=== PATIENT | female | born 1950 | race Caucasian/White ===

== ENCOUNTER 2020-08-29 14:00 | Outpatient (REF) | payer MEDICARE, SELFPAY ==
[2020-08-29 18:15] LABS: Alanine Aminotransferase 13 U/L (0-31); Albumin Level 4.1 g/dL (3.5-5.0); Alkaline Phosphatase 119 U/L (39-117); Anion Gap 18 (12-20); Aspartate Amino Transferase 15 U/L (5-31); Bilirubin Total 0.5 mg/dL (0.0-1.0); Blood Urea Nitrogen 23 mg/dL (9-16); Calcium 9.6 mg/dL (8.4-10.2); Carbon Dioxide 22 mmol/L (22-29); Chloride 104 mmol/L (96-108); Estimated Glomerular Filt Rate 42; Glucose Random 103 mg/dL (60-115); Potassium 4.8 mmol/L (3.3-5.1); Sodium 139 mmol/L (135-145)
== END 2020-08-29 14:01 | disposition home or self-care (01) ==
LOC: HO.HMGCLDS 14:00
PROVIDERS: PCP Internal Medicine; Visit Provider Internal Medicine
DX: E66.01 Morbid (severe) obesity due to excess calories (principal); F33.9 Major depressive disorder, recurrent, unspecified; I89.0 Lymphedema, not elsewhere classified
CPT/HCPCS: 36415; 80053

== ENCOUNTER → 2020-11-06 10:56 | Outpatient (BNVA) | payer MEDICARE, SELFPAY | PROVIDERS: Visit Provider Internal Medicine | DX: I89.0 Lymphedema, not elsewhere classified (principal); S71.101A Unspecified open wound, right thigh, initial encounter | CPT/HCPCS: 99202 ==

== ENCOUNTER 2021-07-12 12:45 | Outpatient (REF) | payer MEDICARE, SELFPAY ==
[2021-07-12 14:05] LABS: Alanine Aminotransferase 13 U/L (0-31); Albumin Level 3.6 g/dL (3.5-5.0); Alkaline Phosphatase 138 U/L (39-117); Anion Gap 13 (12-20); Aspartate Amino Transferase 15 U/L (5-31); Bilirubin Total 0.5 mg/dL (0.0-1.0); Blood Urea Nitrogen 22 mg/dL (9-16); Calcium 9.3 mg/dL (8.4-10.2); Carbon Dioxide 24 mmol/L (22-29); Chloride 105 mmol/L (96-108); Estimated Glomerular Filt Rate 53; Glucose Random 94 mg/dL (60-115); Potassium 4.2 mmol/L (3.3-5.1); Sodium 138 mmol/L (135-145); Total Protein 6.5 g/dL (6.5-8.0)
== END 2021-07-12 12:46 | disposition home or self-care (01) ==
LOC: HO.HMGCLDS 12:45
PROVIDERS: PCP Internal Medicine; Visit Provider Internal Medicine
DX: F33.9 Major depressive disorder, recurrent, unspecified (principal); I89.0 Lymphedema, not elsewhere classified; R26.9 Unspecified abnormalities of gait and mobility; E66.01 Morbid (severe) obesity due to excess calories
CPT/HCPCS: 36415; 80053

== ENCOUNTER 2022-12-03 12:45 | Outpatient (AMB) | payer MEDICARE, MEDICAID, SELFPAY ==
--- NOTE | 2022-12-03 12:55 | MHC.PC.OV ---
Vital Signs 12/03/22 12:58 Height 5 ft 1 in Weight 254 lb BMI 48.0 BP 132/70 Blood Pressure Location Rt radial Position Sitting Pulse 100 Pulse Source Pulse Oximeter Pulse Oximetry (%) 97 Oxygen Delivery Method Room Air Intake Visit Reasons: 6 Month follow up Med Intake Note: Pt is here today for 6 months follow up visit. Allergies cefuroxime Adverse Reaction (Mild, Verified 12/03/22 12:59) Rash Cloth tape Allergy (Unknown, Uncoded 12/03/22 12:59) ?rash Medication List - Last Reconciled 12/03/22 by Michelle Alvarez MD bupropion HCl 300 mg PO QAM 90 days furosemide (Lasix) 40 mg PO DAILY 90 days ibuprofen 500 mg PO Q6H Tobacco use date assessed: 12/03/22 Fall risk assessment: No Falls in past year Last assessed Fall Risk: 12/03/22 Dental Screening Dental Screen Date: 12/03/22 Did you have a dental visit in the last 12 months?: No Did you have a dental problem in the last 6 months where you did not have access to dental care?: No Was dental information given to patient?: Patient declined HPI 6 Month follow up Med HPI Details Patient is 72-year-old female with a history of lymphedema and morbid obesity came in for her 6 month follow-up appointment Patient is due for labs which has not been done yet it was ordered last visit as well. Patient is on Lasix 40 mg daily Major depression: Patient is on Wellbutrin 300 mg daily, depression is stable, no side effects. Difficulty walking because of morbid obesity her BMI was 43.5. Last visit and today it is 48.0. Was offered patient, appointment with dietitian for bariatric surgery which she declined Patient says that she knows why she gained weight because she is not very active anymore, she is having difficulty walking I have ordered physical therapy at home she already have [facility]NA come over for dressing for her leg wounds Patient have severe lymphedema and she goes to [facility] clinic regularly. She is mobile with the help of walker with difficulty Last time she had labs her alkaline phosphatase was 138 which need to be repeated [facility] Social History Housing: Apartment Patient Tobacco Use Status: Never used Tobacco e-Cigarette/Vaping Use: Never Used Current occupational status: disabled Cognitive needs: No Hearing needs: No Vision needs: Yes Questionnaire PHQ-9 Over the last 2 weeks, how often have you been bothered by any of the following problems? 1. Little interest or pleasure in doing things: several days 2. Feeling down, depressed, or hopeless: several days 3. Trouble falling or staying asleep, or sleeping too much: several days 4. Feeling tired or having little energy: several days 5. Poor appetite or overeating: not at all 6. Feeling bad about yourself - or that you are a failure or have let yourself or your family down: not at all 7. Trouble concentrating on things, such as reading the newspaper or watching television: not at all 8. Moving or speaking so slowly that other people could have noticed. Or the opposite - being so fidgety or restless that you have been moving around a lot more than usual: several days 9. Thoughts that you would be better off or of hurting yourself in some way: not at all Total score: 5 Depression Screening Interpretation: Negative Depression Screening Done: Yes 34188 - PHQ-9 Billing: Yes Source: Developed by Drs. Evens Martin, Kristal Oreilly, Stew Allen and colleagues, with an educational kenneth from [employer]. Thrive Questionnaire Date Thrive assessed: 08/29/20 AUDIT C Alcohol Use Questionnaire (AUDIT-C) 1. How often do you have a drink containing alcohol?: Never 3. How often do you have six or more drinks on one occasion?: Never Total Score: 0 Review of Systems Const Denies chills and Denies fever(s) ENT Denies epistaxis and Denies nasal discharge Card Denies chest pain Resp Denies chest congestion, Denies cough and Denies hemoptysis GI Denies diarrhea and Denies nausea Skin/Breast Denies rash Neuro Reports no additional complaints Psych Reports no additional complaints Endo Reports no additional complaints Physical exam (Primary Care) Vital Signs: Last Vital Signs Pulse 100 12/03/22 12:58 BP 132/70 12/03/22 12:58 Pulse Ox 97 12/03/22 12:58 Oxygen Delivery Method Room Air 12/03/22 12:58 Care Plan Goal for BP management: BMI result Body Mass Index 48.0 Senior Application Software Engineer consultation and bariatric appointment offered to patient which was declined BMI Assessment/Plan discussion: High Tobacco/Smoking Status: Tobacco use Status Tobacco use date assessed 12/03/22 12/03/22 13:01 Patient Tobacco Use Status Never used Tobacco 12/03/22 13:01 e-Cigarette/Vaping Use Never Used 12/03/22 12:55 PHQ-9: PHQ-9 Score PHQ-9: Total score 5 12/03/22 13:13 Depression Screening Interpretation: Negative Thrive Assessment: Date of Thrive Assessment Date Thrive assessed 08/29/20 12/03/22 12:55 Const Other: morbid obesity General: cooperative, comfortable and no acute distress Orientation/consciousness: patient oriented x3 HENMT Head: Yes normocephalic Eyes General: appearance normal, both eyes and all related structures Neck Neck: Yes supple Resp Effort & Inspection: normal respiratory effort, no cough and no stridor Cardio Rhythm: regular rhythm Heart sounds: S1 normal heart sound present and S2 normal heart sound present Skin General skin exam: turgor normal Neuro General: patient oriented x3 Cognition (Neuro): normal cognition Gait exam (Neuro): Normal gait present Extrem Other: severe lymph edema both lower extremities Psych Thought content: Normal thought content present Assessment and Plan Assessment & Plan (1) Major depression, recurrent: Code(s): F33.9 - Major depressive disorder, recurrent, unspecified Qualifiers: Active/Remission status: currently active Major depression episode severity: moderate Qualified Code(s): F33.1 - Major depressive disorder, recurrent, moderate (2) Morbid obesity due to excess calories: Code(s): E66.01 - Morbid (severe) obesity due to excess calories (3) Lymphedema: Code(s): I89.0 - Lymphedema, not elsewhere classified (4) Gait difficulty: Code(s): R26.9 - Unspecified abnormalities of gait and mobility (5) Wound of lower extremity: Comment: There doesnt seem to be active infection at this time Wound Vac is working Code(s): S81.809A - Unspecified open wound, unspecified lower leg, initial encounter Qualifiers: Encounter type: sequela Laterality: left Qualified Code(s): S81.802S - Unspecified open wound, left lower leg, sequela (6) Osteoarthritis of knees, bilateral: Code(s): M17.0 - Bilateral primary osteoarthritis of knee Qualifiers: Osteoarthritis type: primary Qualified Code(s): M17.0 - Bilateral primary osteoarthritis of knee Plan Patient is 72-year-old female with a history of lymphedema and morbid obesity came in for her 6 month follow-up appointment Patient is due for labs which has not been done yet it was ordered last visit as well. Patient is on Lasix 40 mg daily Major depression: Patient is on Wellbutrin 300 mg daily, depression is stable, no side effects. Difficulty walking because of morbid obesity her BMI was 43.5. Last visit and today it is 48.0. Was offered patient, appointment with dietitian for bariatric surgery which she declined Patient says that she knows why she gained weight because she is not very active anymore, she is having difficulty walking I have ordered physical therapy at home she already have VNA come over for dressing for her leg wounds Patient have severe lymphedema and she goes to [facility] clinic regularly. She is mobile with the help of walker with difficulty Last time she had labs her alkaline phosphatase was 138 which need to be repeated Orders: Orders TSH reflex Free T4 Today E66.01 - Morbid (severe) obesity due to excess calories, F33.9 - Major depressive disorder, recurrent, unspecified, I89.0 - Lymphedema, not elsewhere classified, R26.9 - Unspecified abnormalities of gait and mobility Complete Blood Count Auto Diff Today E66.01 - Morbid (severe) obesity due to excess calories, F33.9 - Major depressive disorder, recurrent, unspecified, I89.0 - Lymphedema, not elsewhere classified, R26.9 - Unspecified abnormalities of gait and mobility Comprehensive Met. Panel Today E66.01 - Morbid (severe) obesity due to excess calories, F33.9 - Major depressive disorder, recurrent, unspecified, I89.0 - Lymphedema, not elsewhere classified, R26.9 - Unspecified abnormalities of gait and mobility [facility]errals [facility] Referral I89.0 - Lymphedema, not elsewhere classified, M17.0 - Bilateral primary osteoarthritis of knee, R26.9 - Unspecified abnormalities of gait and mobility, S81.809A - Unspecified open wound, unspecified lower leg, initial encounter Coding Level of Care Code Est Pt Level 4 (23209) Diagnoses Moderate episode of recurrent major depressive disorder F33.1 Active/Remission status: currently active Major depression episode severity: moderate Morbid obesity due to excess calories E66.01 Lymphedema I89.0 Gait difficulty R26.9 Wound of left lower extremity, sequela S81.802S Encounter type: sequela Laterality: left Primary osteoarthritis of both knees M17.0 Osteoarthritis type: primary
[2022-12-03 12:58] VITALS: BP 132/70; PULSE 100; O2SAT 97; BMI 48.0
== END 2022-12-03 13:32 | disposition home or self-care (01) ==
PROVIDERS: PCP Internal Medicine; Visit Provider Internal Medicine
DX: F33.1 Major depressive disorder, recurrent, moderate (principal); E66.01 Morbid (severe) obesity due to excess calories; I89.0 Lymphedema, not elsewhere classified; Z68.42 Body mass index [BMI] 45.0-49.9, adult; R26.9 Unspecified abnormalities of gait and mobility; S81.802S Unspecified open wound, left lower leg, sequela; M17.0 Bilateral primary osteoarthritis of knee
CPT/HCPCS: 99214

== ENCOUNTER 2022-12-03 13:17 | Outpatient (REF) | payer MEDICARE, MEDICAID, SELFPAY ==
[2022-12-03 16:02] LABS: MANUAL DIFF FLAG NO
[2022-12-03 16:05] LABS: Basophils Percent Auto 0.6 % (0-2); Eosinophils Absolute Auto 0.2 X10*3/uL (0.0-0.4); Eosinophils Percent Auto 4.9 % (0-4); Hematocrit 33.1 % (37.0-47.0); Hemoglobin 10.7 g/dl (12.0-16.0); Imm Gran Abs Auto 0.01 X10*3/uL (0.00-0.03); Imm Gran Pct Auto 0.3 % (0.0-0.4); Lymphocytes Absolute Auto 0.7 X10*3/uL (1.2-4.9); Lymphocytes Percent Auto 20.8 % (20-40); Mean Corpuscular HGB Conc 32.3 g/dl (31.0-35.0); Mean Corpuscular Hemoglobin 28.8 pg (27.0-33.0); Mean Corpuscular Volume 89.2 fL (80.0-98.0); Mean Platelet Volume 10.7 fL (9.4-12.3); Monocytes Absolute Auto 0.2 X10*3/uL (0.1-1.2); Monocytes Percent Auto 6.1 % (2-11); Neutrophils Absolute Auto 2.3 x10*3/uL (2.0-8.3); Neutrophils Percent Auto 67.3 % (45-73); Platelet Count 200 X10*3/uL (160-400); Red Blood Count 3.71 X10*6/uL (4.20-5.50); Red Cell Distribution Width 14.2 % (11.0-16.0); White Blood Count 3.5 X10*3/uL (4.8-10.8)
[2022-12-03 16:33] LABS: Alanine Aminotransferase 6 U/L (0-31); Albumin Level 3.7 g/dL (3.5-5.0); Alkaline Phosphatase 87 U/L (39-117); Anion Gap 13 (12-20); Aspartate Amino Transferase 11 U/L (5-31); Bilirubin Total 0.6 mg/dL (0.0-1.0); Blood Urea Nitrogen 19 mg/dL (9-16); Calcium 8.7 mg/dL (8.4-10.2); Carbon Dioxide 24 mmol/L (22-29); Chloride 107 mmol/L (96-108); Estimated Glomerular Filt Rate > 60; Glucose Random 96 mg/dL (60-115); Potassium 3.9 mmol/L (3.3-5.1); Sodium 140 mmol/L (135-145); Total Protein 6.5 g/dL (6.5-8.0)
[2022-12-03 16:49] LABS: TSH reflex Free T4 1.18 uIU/mL (0.32-4.0)
== END 2023-02-24 08:00 | disposition home or self-care (01) ==
LOC: HO.HMGCLDS 13:17
PROVIDERS: PCP Internal Medicine; Visit Provider Internal Medicine
DX: E66.01 Morbid (severe) obesity due to excess calories (principal); F33.9 Major depressive disorder, recurrent, unspecified; I89.0 Lymphedema, not elsewhere classified; R26.9 Unspecified abnormalities of gait and mobility
CPT/HCPCS: 36415; 80053; 84443; 85025

== ENCOUNTER 2023-04-27 09:30 | Outpatient (RCR) | payer MEDICARE, MEDICAID, SELFPAY | END 2023-12-28 11:23 | disposition home or self-care (01) | LOC: HO.WCC 09:30 | PROVIDERS: Visit Provider Physician Assistant | DX: I87.312 Chronic venous hypertension (idiopathic) with ulcer of left lower extremity (principal); L89.623 Pressure ulcer of left heel, stage 3; Q82.0 Hereditary lymphedema; L50.0 Allergic urticaria; L84 Corns and callosities | CPT/HCPCS: 11042; 11045; 11104; 17250; 29581; 87071; 87205; 88305; 88311; 97597; 97598; 97602; 97605; 97607; 99212; 99213; 99214 ==

== ENCOUNTER 2023-06-02 12:29 | Outpatient (AMB) | payer MEDICARE, MEDICAID, SELFPAY ==
--- NOTE | 2023-06-02 12:31 | A.OFFPC_ITS ---
Vital Signs 06/02/23 12:32 Height 5 ft 1 in Weight 254 lb 8 oz BMI 48.1 BP 128/70 Blood Pressure Location Rt brachial Position Sitting Pulse 90 Pulse Source Pulse Oximeter Pulse Oximetry (%) 98 Oxygen Delivery Method Room Air Intake Visit Reasons: HDF ~ Post hospital discharge FU Allergies cefuroxime Adverse Reaction (Mild, Verified 06/02/23 12:36) Rash Cloth tape Allergy (Unknown, Uncoded 06/02/23 12:36) ?rash Medication List - Last Reconciled 06/02/23 by Michelle Alvarez MD ascorbate calcium (vitamin C) 500 mg PO DAILY bupropion HCl 150 mg PO BID furosemide (Lasix) 40 mg PO DAILY 90 days ibuprofen 500 mg PO Q6H multivitamin (Daily Multi-Vitamin tablet) 1 tab PO DAILY protein supplement ea PO Tobacco use date assessed: 06/02/23 Fall risk assessment: 1 Fall in past year Last assessed Fall Risk: 06/02/23 Dental Screening Dental Screen Date: 06/02/23 Did you have a dental visit in the last 12 months?: No Did you have a dental problem in the last 6 months where you did not have access to dental care?: No Was dental information given to patient?: No HPI HDF ~ Post hospital discharge FU HPI Details Patient is 72-year-old female with a past medical history of chronic bilateral lower extremity lymphedema, chronic lower extremity wounds presented to emergency room on 07/20/2023 with a chief complaint of feeling weak especially in her knees and legs Patient uses walker as her baseline for ambulation One workup her hemoglobin came back at 10.3, which is stable and baseline for the patient it was 10.7 end of last year GFR 55 with normal creatinine and electrolytes TSH 1.47 Influenza screening was negative COVID screening was negative Imaging like CT scan of head showed no acute intracranial abnormalities After evaluation patient was discharged to rehab facility for physical therapy Patient stayed there for 2 weeks She is walking little bit more now, but it is difficult due to lymphedema Her visit with operator specialist communications was on 25 of May this year She is under treatment for recurrent left medial leg ulcer Her other medications are Wellbutrin 300 mg for depression And furosemide 40 mg daily for lymphedema She also take ibuprofen as needed for arthrosis pain Patient's BMI is elevated at 48.1 which is another reason it is difficult for her to be very active Patient will return in 6 months for her regular follow-up appointment [facility] Social History Housing: Apartment Patient Tobacco Use Status: Never used Tobacco e-Cigarette/Vaping Use: Never Used Current occupational status: disabled Cognitive needs: No Hearing needs: No Vision needs: Yes Questionnaire Thrive Questionnaire Date Thrive assessed: 08/29/20 AUDIT C Alcohol Use Questionnaire (AUDIT-C) 1. How often do you have a drink containing alcohol?: Never 3. How often do you have six or more drinks on one occasion?: Never Total Score: 0 Review of Systems Const Denies chills and Denies fever(s) ENT Denies epistaxis and Denies nasal discharge Card Denies chest pain Resp Denies chest congestion, Denies cough and Denies hemoptysis GI Denies diarrhea and Denies nausea Skin/Breast Denies rash Neuro Reports no additional complaints Psych Reports no additional complaints Endo Reports no additional complaints Physical exam (Primary Care) Vital Signs: Last Vital Signs Pulse 90 06/02/23 12:32 BP 128/70 06/02/23 12:32 Pulse Ox 98 06/02/23 12:32 Oxygen Delivery Method Room Air 06/02/23 12:32 BMI result Body Mass Index 48.1 Tobacco/Smoking Status: Tobacco use Status Tobacco use date assessed 06/02/23 06/02/23 12:43 Patient Tobacco Use Status Never used Tobacco 06/02/23 12:40 e-Cigarette/Vaping Use Never Used 06/02/23 12:40 Thrive Assessment: Date of Thrive Assessment Date Thrive assessed 08/29/20 06/02/23 12:40 Const General: cooperative, comfortable and no acute distress Orientation/consciousness: patient oriented x3 HENGA Head: Yes normocephalic Eyes General: appearance normal, both eyes and all related structures Neck Neck: Yes supple Resp Effort & Inspection: normal respiratory effort, no cough and no stridor Cardio Rhythm: regular rhythm Heart sounds: S1 normal heart sound present and S2 normal heart sound present Skin General skin exam: turgor normal Neuro General: patient oriented x3, tone normal and moves all extremities Extrem Other: Severe lymphedema both legs Assessment and Plan Assessment & Plan (1) Weakness: Code(s): R53.1 - Weakness (2) Fatigue: Code(s): R53.83 - Other fatigue Qualifiers: Fatigue type: chronic, unspecified Qualified Code(s): R53.82 - Chronic fatigue, unspecified (3) Instability of both knee joints: Code(s): M25.361 - Other instability, right knee; M25.362 - Other instability, left knee (4) Anemia: Code(s): D64.9 - Anemia, unspecified Qualifiers: Anemia type: other cause Other causes of anemia: chronic disease, other Qualified Code(s): D63.8 - Anemia in other chronic diseases classified elsewhere (5) Osteoarthritis of knees, bilateral: Code(s): M17.0 - Bilateral primary osteoarthritis of knee Qualifiers: Osteoarthritis type: primary Qualified Code(s): M17.0 - Bilateral primary osteoarthritis of knee (6) Major depression, recurrent: Code(s): F33.9 - Major depressive disorder, recurrent, unspecified Qualifiers: Active/Remission status: currently active Major depression episode severity: moderate Qualified Code(s): F33.1 - Major depressive disorder, recurrent, moderate (7) Morbid obesity due to excess calories: Code(s): E66.01 - Morbid (severe) obesity due to excess calories (8) Wound of lower extremity: Comment: There doesnt seem to be active infection at this time Wound Vac is working Code(s): S81.809A - Unspecified open wound, unspecified lower leg, initial encounter Qualifiers: Encounter type: sequela Laterality: left Qualified Code(s): S81.802S - Unspecified open wound, left lower leg, sequela (9) Lymphedema: Code(s): I89.0 - Lymphedema, not elsewhere classified (10) Walker as ambulation aid: Code(s): Z99.89 - Dependence on other enabling machines and devices Plan Patient is 72-year-old female with a past medical history of chronic bilateral lower extremity lymphedema, chronic lower extremity wounds presented to emergency room on 07/20/2023 with a chief complaint of feeling weak especially in her knees and legs Patient uses walker as her baseline for ambulation One workup her hemoglobin came back at 10.3, which is stable and baseline for the patient it was 10.7 end of last year GFR 55 with normal creatinine and electrolytes TSH 1.47 Influenza screening was negative COVID screening was negative Imaging like CT scan of head showed no acute intracranial abnormalities After evaluation patient was discharged to rehab facility for physical therapy Patient stayed there for 2 weeks She is walking little bit more now, but it is difficult due to lymphedema Her visit with operator specialist communications was on 25 of May this year She is under treatment for recurrent left medial leg ulcer Her other medications are Wellbutrin 300 mg for depression And furosemide 40 mg daily for lymphedema She also take ibuprofen as needed for arthrosis pain Patient's BMI is elevated at 48.1 which is another reason it is difficult for her to be very active Patient will return in 6 months for her regular follow-up appointment Orders: Orders Ferritin Today D64.9 - Anemia, unspecified, F33.9 - Major depressive disorder, recurrent, unspecified, M17.0 - Bilateral primary osteoarthritis of knee, R53.1 - Weakness, R53.83 - Other fatigue, S81.809A - Unspecified open wound, unspecified lower leg, initial encounter Complete Blood Count Auto Diff Today D64.9 - Anemia, unspecified, F33.9 - Major depressive disorder, recurrent, unspecified, M17.0 - Bilateral primary osteoarthritis of knee, R53.1 - Weakness, R53.83 - Other fatigue, S81.809A - Unspecified open wound, unspecified lower leg, initial encounter Comprehensive Met. Panel Today D64.9 - Anemia, unspecified, F33.9 - Major de pressive disorder, recurrent, unspecified, M17.0 - Bilateral primary osteoarthritis of knee, R53.1 - Weakness, R53.83 - Other fatigue, S81.809A - Unspecified open wound, unspecified lower leg, initial encounter LDL Cholesterol Direct Today D64.9 - Anemia, unspecified, F33.9 - Major depressive disorder, recurrent, unspecified, M17.0 - Bilateral primary osteoarthritis of knee, R53.1 - Weakness, R53.83 - Other fatigue, S81.809A - Unspecified open wound, unspecified lower leg, initial encounter Vitamin D 25-OH (D2 and D3) Today D64.9 - Anemia, unspecified, F33.9 - Major depressive disorder, recurrent, unspecified, M17.0 - Bilateral primary osteoarthritis of knee, R53.1 - Weakness, R53.83 - Other fatigue, S81.809A - Unspecified open wound, unspecified lower leg, initial encounter Coding Level of Care Code Est Pt Level 5 (42642) Diagnoses Weakness R53.1 Chronic fatigue R53.82 Fatigue type: chronic, unspecified 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; M25.362 Anemia in other chronic diseases classified elsewhere D63.8 Anemia type: other cause Other causes of anemia: chronic disease, other Primary osteoarthritis of both knees M17.0 Osteoarthritis type: primary Moderate episode of recurrent major depressive disorder F33.1 Active/Remission status: currently active Major depression episode severity: moderate Morbid obesity due to excess calories E66.01 Wound of left lower extremity, sequela S81.802S Encounter type: sequela Laterality: left Lymphedema I89.0 Walker as ambulation aid Z99.89 Time Spent (min) 45 Comment 5 pre visit, 30 with patient, 5 charting, 5 coordination care
[2023-06-02 12:32] VITALS: BP 128/70; PULSE 90; O2SAT 98; BMI 48.1
== END 2023-06-02 14:11 | disposition home or self-care (01) ==
LOC: HO.HMGC 12:30
PROVIDERS: PCP Internal Medicine; Visit Provider Internal Medicine
DX: R53.1 Weakness (principal); F33.1 Major depressive disorder, recurrent, moderate; E66.01 Morbid (severe) obesity due to excess calories; Z68.42 Body mass index [BMI] 45.0-49.9, adult; R53.82 Chronic fatigue, unspecified; M25.361 Other instability, right knee; M25.362 Other instability, left knee; D63.8 Anemia in other chronic diseases classified elsewhere; M17.0 Bilateral primary osteoarthritis of knee; S81.802S Unspecified open wound, left lower leg, sequela; I89.0 Lymphedema, not elsewhere classified; Z99.89 Dependence on other enabling machines and devices
CPT/HCPCS: 99215

== ENCOUNTER 2024-01-05 13:23 | Outpatient (AMB) | payer MEDICARE, MEDICAID, SELFPAY ==
[2024-01-05 13:48] VITALS: BP 136/72; PULSE 123; O2SAT 99
--- NOTE | 2024-01-05 13:48 | MHC.PC.OV ---
Vital Signs 01/05/24 13:48 Height 5 ft 1 in BMI Reason not done Patient refused/unable BP 136/72 Blood Pressure Location Lt brachial Position Sitting Pulse 123 H Pulse Source Pulse Oximeter Pulse Oximetry (%) 99 Oxygen Delivery Method Room Air Intake Visit Reasons: Annual PE Allergies cefuroxime Adverse Reaction (Mild, Verified 01/05/24 13:48) Rash Cloth tape Allergy (Unknown, Uncoded 06/02/23 12:36) ?rash Medication List - Last Reconciled 01/05/24 by Michelle Alvarez MD ascorbate calcium (vitamin C) 500 mg PO DAILY bupropion HCl XL (Wellbutrin XL) 300 mg PO QAM furosemide (Lasix) 40 mg PO DAILY 90 days ibuprofen 500 mg PO Q6H multivitamin (Daily Multi-Vitamin tablet) 1 tab PO DAILY protein supplement ea PO Tobacco use date assessed: 01/05/24 Fall risk assessment: No Falls in past year Last assessed Fall Risk: 01/05/24 Dental Screening Dental Screen Date: 01/05/24 Did you have a dental visit in the last 12 months?: Yes Did you have a dental problem in the last 6 months where you did not have access to dental care?: No Was dental information given to patient?: Patient has dentist HPI Annual PE HPI Details Patient is 73-year-old female with a history of lymphedema and morbid obesity came in for her physical exam Which is limited as patient is not able to get on examination table due to her weight And lymphedema, difficulty walking She is walker dependent, using Rollator with white seat, patient is in need of new Rollator as the 1 she has does not have breaks anymore Patient is due for labs , last set of labs were last year, I did placed order in May but they are still not done She said she will do them today Patient is on Lasix 40 mg daily Major depression: Patient is on Wellbutrin 300 mg daily, depression is stable, no side effects. Patient have severe lymphedema and she goes to 1 clinic regularly. Patient does not want to do mammograms Colonoscopy [facility] Social History Housing: Apartment Patient Tobacco Use Status: Never used Tobacco e-Cigarette/Vaping Use: Never Used Current occupational status: disabled Cognitive needs: No Hearing needs: No Vision needs: Yes Questionnaire PHQ-9 Over the last 2 weeks, how often have you been bothered by any of the following problems? 1. Little interest or pleasure in doing things: several days 2. Feeling down, depressed, or hopeless: several days 3. Trouble falling or staying asleep, or sleeping too much: several days 4. Feeling tired or having little energy: several days 5. Poor appetite or overeating: not at all 6. Feeling bad about yourself - or that you are a failure or have let yourself or your family down: not at all 7. Trouble concentrating on things, such as reading the newspaper or watching television: not at all 8. Moving or speaking so slowly that other people could have noticed. Or the opposite - being so fidgety or restless that you have been moving around a lot more than usual: several days 9. Thoughts that you would be better off or of hurting yourself in some way: not at all Total score: 5 Depression Screening Interpretation: Negative Depression Screening Done: Yes 01219 - PHQ-9 Billing: Yes Source: Developed by Drs. Evens Martin, Kristal Oreilly, Stew Allen and colleagues, with an educational kenneth from [employer]. Thrive Questionnaire Date Thrive assessed: 08/29/20 Review of Systems Const Denies chills and Denies fever(s) ENT Denies epistaxis and Denies nasal discharge Card Denies chest pain Resp Denies chest congestion, Denies cough and Denies hemoptysis GI Denies diarrhea and Denies nausea Skin/Breast Denies rash Neuro Reports no additional complaints Psych Reports no additional complaints Endo Reports no additional complaints Physical exam (Primary Care) Vital Signs: Last Vital Signs Pulse 123 H 01/05/24 13:48 BP 136/72 01/05/24 13:48 Pulse Ox 99 01/05/24 13:48 Oxygen Delivery Method Room Air 01/05/24 13:48 Tobacco/Smoking Status: Tobacco use Status Tobacco use date assessed 01/05/24 01/05/24 13:50 Patient Tobacco Use Status Never used Tobacco 01/05/24 13:50 e-Cigarette/Vaping Use Never Used 01/05/24 13:50 PHQ-9: PHQ-9 Score PHQ-9: Total score 5 01/05/24 14:19 Depression Screening Interpretation: Negative Thrive Assessment: Date of Thrive Assessment Date Thrive assessed 08/29/20 01/05/24 13:50 Const General: cooperative, comfortable and no acute distress Orientation/consciousness: patient oriented x3 HENMT Head: Yes normocephalic Eyes General: appearance normal, both eyes and all related structures Neck Neck: Yes supple Resp Effort & Inspection: normal respiratory effort, no cough and no stridor Cardio Rhythm: regular rhythm Heart sounds: S1 normal heart sound present and S2 normal heart sound present Skin General skin exam: turgor normal Neuro General: patient oriented x3, tone normal and moves all extremities Coding Level of Care Code Est Pt Level 3 (13770) Est Pt Prev Care >65y(65929) Diagnoses Encounter for general adult medical examination with abnormal findings Z00.01 Lymphedema I89.0 Morbid obesity due to excess calories E66.01 Gait difficulty R26.9 Primary osteoarthritis of both knees M17.0 Osteoarthritis type: primary 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; 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 Walker as ambulation aid Z99.89 Risk for falls Z91.81 Moderate episode of recurrent major depressive disorder F33.1 Active/Remission status: currently active Major depression episode severity: moderate Additional Codes PHQ-9 - 42435 - PHQ-9 Billing: Yes ([id number]) Assessment & Plan Assessment & Plan (1) Encounter for general adult medical examination with abnormal findings: Code(s): Z00.01 - Encounter for general adult medical examination with abnormal findings Category: Medical (2) Lymphedema: Code(s): I89.0 - Lymphedema, not elsewhere classified Category: Medical (3) Morbid obesity due to excess calories: Code(s): E66.01 - Morbid (severe) obesity due to excess calories Category: Medical (4) Gait difficulty: Code(s): R26.9 - Unspecified abnormalities of gait and mobility Category: Medical (5) Osteoarthritis of knees, bilateral: Code(s): M17.0 - Bilateral primary osteoarthritis of knee Category: Medical Qualifiers: Osteoarthritis type: primary Qualified Code(s): M17.0 - Bilateral primary osteoarthritis of knee (6) Instability of both knee joints: Code(s): M25.361 - Other instability, right knee; M25.362 - Other instability, left knee Category: Medical (7) Walker as ambulation aid: Code(s): Z99.89 - Dependence on other enabling machines and devices Category: Medical (8) Risk for falls: Code(s): Z91.81 - History of falling Category: Medical (9) Major depression, recurrent: Code(s): F33.9 - Major depressive disorder, recurrent, unspecified Category: Medical Qualifiers: Active/Remission status: currently active Major depression episode severity: moderate Qualified Code(s): F33.1 - Major depressive disorder, recurrent, moderate Plan Patient is 73-year-old female with a history of lymphedema and morbid obesity came in for her physical exam Which is limited as patient is not able to get on examination table due to her weight And lymphedema, difficulty walking She is walker dependent, using Rollator with white seat, patient is in need of new Rollator as the 1 she has does not have breaks anymore Patient is due for labs , last set of labs were last year, I did placed order in May but they are still not done She said she will do them today Patient is on Lasix 40 mg daily Major depression: Patient is on Wellbutrin 300 mg daily, depression is stable, no side effects. Patient have severe lymphedema and she goes to 1 clinic regularly. Patient does not want to do mammograms Colonoscopy Medications: New [Rollator with wide seat] As directed 1 ea 0RF E66.01 - Morbid (severe) obesity due to excess calories, I89.0 - Lymphedema, not elsewhere classified, M17.0 - Bilateral primary osteoarthritis of knee, M25.361 - Other instability, right knee, M25.362 - Other instability, left knee, R26.9 - Unspecified abnormalities of gait and mobility, Z91.81 - History of falling, Z99.89 - Dependence on other enabling machines and devices
== END 2024-01-05 15:21 | disposition home or self-care (01) ==
LOC: HO.HMCC 13:24
PROVIDERS: PCP Internal Medicine; Visit Provider Internal Medicine
DX: Z00.00 Encounter for general adult medical examination without abnormal findings (principal); I89.0 Lymphedema, not elsewhere classified; E66.01 Morbid (severe) obesity due to excess calories; F33.1 Major depressive disorder, recurrent, moderate; R26.9 Unspecified abnormalities of gait and mobility; M17.0 Bilateral primary osteoarthritis of knee; M25.361 Other instability, right knee; M25.362 Other instability, left knee; Z99.89 Dependence on other enabling machines and devices; Z91.81 History of falling

== ENCOUNTER 2024-01-05 13:23 | Outpatient (REF) | payer MEDICARE, MEDICAID, SELFPAY ==
[2024-01-05 16:16] LABS: MANUAL DIFF FLAG NO
[2024-01-05 16:20] LABS: Basophils Percent Auto 0.6 % (0-2); Eosinophils Absolute Auto 0.2 X10*3/uL (0.0-0.4); Eosinophils Percent Auto 3.1 % (0-4); Hematocrit 35.4 % (37.0-47.0); Hemoglobin 11.1 g/dl (12.0-16.0); Imm Gran Abs Auto 0.01 X10*3/uL (0.00-0.03); Imm Gran Pct Auto 0.2 % (0.0-0.4); Lymphocytes Absolute Auto 0.7 X10*3/uL (1.2-4.9); Lymphocytes Percent Auto 15.2 % (20-40); Mean Corpuscular HGB Conc 31.4 g/dl (31.0-35.0); Mean Corpuscular Hemoglobin 28.8 pg (27.0-33.0); Mean Corpuscular Volume 91.9 fL (80.0-98.0); Mean Platelet Volume 10.5 fL (9.4-12.3); Monocytes Absolute Auto 0.3 X10*3/uL (0.1-1.2); Monocytes Percent Auto 5.3 % (2-11); Neutrophils Absolute Auto 3.7 x10*3/uL (2.0-8.3); Neutrophils Percent Auto 75.6 % (45-73); Platelet Count 235 X10*3/uL (160-400); Red Blood Count 3.85 X10*6/uL (4.20-5.50); Red Cell Distribution Width 14.8 % (11.0-16.0); White Blood Count 4.9 X10*3/uL (4.8-10.8)
[2024-01-05 16:54] LABS: Alanine Aminotransferase 11 U/L (0-31); Albumin Level 3.7 g/dL (3.5-5.0); Alkaline Phosphatase 86 U/L (39-117); Anion Gap 12 (12-20); Aspartate Amino Transferase 17 U/L (5-31); Bilirubin Total 0.6 mg/dL (0.0-1.0); Blood Urea Nitrogen 23 mg/dL (9-16); Calcium 9.4 mg/dL (8.4-10.2); Carbon Dioxide 24 mmol/L (22-29); Chloride 110 mmol/L (96-108); Estimated Glomerular Filt Rate > 60; Glucose Random 100 mg/dL (60-115); Sodium 142 mmol/L (135-145); Total Protein 6.4 g/dL (6.5-8.0)
[2024-01-05 17:10] LABS: Ferritin 21 ng/mL (10-250)
[2024-01-07 10:43] LABS: LDL Cholesterol Direct 120 mg/dL (<100)
[2024-01-10 17:18] LABS: Vitamin D 25-OH, D2 <4 ng/mL; Vitamin D 25-OH, D3 23 ng/mL; Vitamin D 25-OH, Total 23 ng/mL (30-100)
== END 2024-01-05 13:24 | disposition home or self-care (01) ==
LOC: HO.HMGCLDS 13:23
PROVIDERS: PCP Internal Medicine; Visit Provider Internal Medicine
DX: Z00.01 Encounter for general adult medical examination with abnormal findings (principal); R53.83 Other fatigue; R53.1 Weakness; D64.9 Anemia, unspecified; M17.0 Bilateral primary osteoarthritis of knee; F33.1 Major depressive disorder, recurrent, moderate; S81.809A Unspecified open wound, unspecified lower leg, initial encounter; I89.0 Lymphedema, not elsewhere classified; E66.01 Morbid (severe) obesity due to excess calories; Z91.81 History of falling; Z99.89 Dependence on other enabling machines and devices
CPT/HCPCS: 36415; 80053; 82306; 82728; 83721; 85025; 96127; 99212; 99397

== ENCOUNTER 2024-04-27 10:13 | Outpatient (RCR) | payer MEDICARE, MEDICAID, SELFPAY | END 2024-05-26 15:20 | disposition home or self-care (01) | LOC: HO.WCC 10:13 | PROVIDERS: PCP Internal Medicine; Visit Provider Surgery | DX: I87.312 Chronic venous hypertension (idiopathic) with ulcer of left lower extremity (principal); L97.822 Non-pressure chronic ulcer of other part of left lower leg with fat layer exposed; Q82.0 Hereditary lymphedema | CPT/HCPCS: 11042; 17250; 97597; 99212 ==

== ENCOUNTER 2024-05-25 13:22 | Outpatient (AMB) | payer MEDICARE, MEDICAID, SELFPAY ==
[2024-05-25 13:27] VITALS: BP 124/68; PULSE 94; O2SAT 96
--- NOTE | 2024-05-25 13:27 | A.OFFPC_ITS ---
Vital Signs 05/25/24 13:27 Height 5 ft 1 in BMI Reason not done Patient refused/unable BP 124/68 Blood Pressure Location Lt brachial Position Sitting Pulse 94 Pulse Source Pulse Oximeter Pulse Oximetry (%) 96 Oxygen Delivery Method Room Air Intake Visit Reasons: 6m f/u/ med review Allergies cefuroxime Adverse Reaction (Mild, Verified 01/05/24 13:48) Rash Cloth tape Allergy (Unknown, Uncoded 06/02/23 12:36) ?rash Medication List - Last Reconciled 05/25/24 by Michelle Alvarez MD ascorbate calcium (vitamin C) 500 mg PO DAILY bupropion HCl XL (Wellbutrin XL) 300 mg PO QAM furosemide (Lasix) 40 mg PO DAILY 90 days ibuprofen 500 mg PO Q6H multivitamin (Daily Multi-Vitamin tablet) 1 tab PO DAILY protein supplement ea PO [Rollator with wide seat As directed] Tobacco use date assessed: 01/05/24 Dental Screening Dental Screen Date: 01/05/24 HPI 6m f/u/ med review HPI Details Regular follow-up appointment - The patient is a 73-year-old female wi th a history of lymphedema bilateral severe, chronic leg wound left side, depression Ambulatory with the help of walker or power wheelchair presenting with shoulder pain. - Left shoulder pain started approximate ly two weeks ago after overuse during an activity. - Pain severity has improved, though mov ement is still restricted. - The left arm had a pre-existing limite d range of motion, and repetitive use for various tasks exacerbates the discomfort. - Prior wound care on the left leg is no w healed, though the leg remains a concern for the patient. Patient was going to wound clinic and has recently stopped - The patient uses a walker, which can a ggravate the shoulder pain, primarily seeking assistance with physical therapy. X-ray of shoulder ordered Depression stable Continued to be slightly anemic which seems like microcytic patient is taking multivitamin with iron and it is improving Last set of labs done in January hemoglobin was 11.1 Problem List - Shoulder Pain - Muscle Strain - Healed Leg Wound Patient Instructions - Follow up with a physical therapy sess ion for shoulder pain management. - Schedule an X-ray before starting phys ical therapy. - Purchase and take Vitamin D supplement s to address low vitamin D levels. - Continue taking prescribed medications as directed. - Book the next follow-up appointment fo r early October. Review of Systems - General: No fever no chills - Neurological: No headaches no dizziness - Ear nose throat: No sore throat no hearing difficulty no ear pain - Cardiovascular: No syncope, no chest pain, no palpitations - Gastrointestinal: No nausea vomiting or diarrhea - Endocrine: No polyuria polydipsia no heat intolerance - Genitourinary: No dysuria , no blood in urine Physical Exam General: No acute distress sitting on power wheelchair HEENT: No acute findings Neck: Supple Respiratory system: Able to talk in full sentences, no audible wheeze Cardiovascular: S1-S2 regular in rate and rhythm Gastrointestinal: No pain Extremities: Left arm with limited range of motion due to shoulder pain, left leg wound healing severe lymphedema present bilateral lower extremity LINE DANCER: Alert awake oriented x3 motor sensory intact Skin: Normal turgor PFSH Social History Housing: Apartment Patient Tobacco Use Status: Never used Tobacco e-Cigarette/Vaping Use: Never Used Current occupational status: disabled Cognitive needs: No Hearing needs: No Vision needs: Yes Questionnaire Thrive Questionnaire Date Thrive assessed: 08/29/20 Physical exam (Primary Care) Vital Signs: Last Vital Signs Pulse 94 05/25/24 13:27 BP 124/68 05/25/24 13:27 Pulse Ox 96 05/25/24 13:27 Oxygen Delivery Method Room Air 05/25/24 13:27 Tobacco/Smoking Status: Tobacco use Status Tobacco use date assessed 01/05/24 05/25/24 13:27 Patient Tobacco Use Status Never used Tobacco 05/25/24 13:27 e-Cigarette/Vaping Use Never Used 05/25/24 13:27 Thrive Assessment: Date of Thrive Assessment Date Thrive assessed 08/29/20 05/25/24 13:27 Coding Level of Care Code Est Pt Level 4 (94194) Complex EM visit Add On G2211 Diagnoses Acute pain of left shoulder M25.512 Chronicity: acute Lymphedema I89.0 Morbid obesity due to excess calories E66.01 Gait difficulty R26.9 Primary osteoarthritis of both knees M17.0 Osteoarthritis type: primary 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; 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 Walker as ambulation aid Z99.89 Risk for falls Z91.81 Moderate episode of recurrent major depressive disorder F33.1 Active/Remission status: currently active Major depression episode severity: moderate Assessment & Plan Assessment & Plan (1) Shoulder pain, left: Code(s): M25.512 - Pain in left shoulder Category: Medical Qualifiers: Chronicity: acute Qualified Code(s): M25.512 - Pain in left shoulder (2) Lymphedema: Code(s): I89.0 - Lymphedema, not elsewhere classified Category: Medical (3) Morbid obesity due to excess calories: Code(s): E66.01 - Morbid (severe) obesity due to excess calories Category: Medical (4) Gait difficulty: Code(s): R26.9 - Unspecified abnormalities of gait and mobility Category: Medical (5) Osteoarthritis of knees, bilateral: Code(s): M17.0 - Bilateral primary osteoarthritis of knee Category: Medical Qualifiers: Osteoarthritis type: primary Qualified Code(s): M17.0 - Bilateral primary osteoarthritis of knee (6) Instability of both knee joints: Code(s): M25.361 - Other instability, right knee; M25.362 - Other instability, left knee Category: Medical (7) Walker as ambulation aid: Code(s): Z99.89 - Dependence on other enabling machines and devices Category: Medical (8) Risk for falls: Code(s): Z91.81 - History of falling Category: Medical (9) Major depression, recurrent: Code(s): F33.9 - Major depressive disorder, recurrent, unspecified Category: Medical Qualifiers: Active/Remission status: currently active Major depression episode severity: moderate Qualified Code(s): F33.1 - Major depressive disorder, recurrent, moderate Plan Regular follow-up appointment - The patient is a 73-year-old female with a history of lymphedema bilateral severe, chronic leg wound left side, depression Ambulatory with the help of walker or power wheelchair presenting with shoulder pain. - Left shoulder pain started approximately two weeks ago after overuse during an activity. - Pain severity has improved, though movement is still restricted. - The left arm had a pre-existing limited range of motion, and repetitive use for various tasks exacerbates the discomfort. - Prior wound care on the left leg is now healed, though the leg remains a concern for the patient. Patient was going to wound clinic and has recently stopped - The patient uses a walker, which can aggravate the shoulder pain, primarily seeking assistance with physical therapy. X-ray of shoulder ordered Depression stable Continued to be slightly anemic which seems like microcytic patient is taking multivitamin with iron and it is improving Last set of labs done in January hemoglobin was 11.1 Problem List - Shoulder Pain - Muscle Strain - Healed Leg Wound Patient Instructions - Follow up with a physical therapy session for shoulder pain management. - Schedule an X-ray before starting physical therapy. - Purchase and take Vitamin D supplements to address low vitamin D levels. - Continue taking prescribed medications as directed. - Book the next follow-up appointment for early October. Orders: Orders PT Evaluation and Treatment Today M25.512 - Pain in left shoulder XR shoulder LT min 2V Today M25.512 - Pain in left shoulder Medications: Refilled furosemide (Lasix) 40 mg PO DAILY 90 days 90 tabs 0RF bupropion HCl XL (Wellbutrin XL) 300 mg PO QAM 90 tabs 1RF
== END 2024-05-25 13:45 | disposition home or self-care (01) ==
LOC: HO.HMCC 13:23
PROVIDERS: PCP Internal Medicine; Visit Provider Internal Medicine
DX: M25.512 Pain in left shoulder (principal); I89.0 Lymphedema, not elsewhere classified; E66.01 Morbid (severe) obesity due to excess calories; F33.1 Major depressive disorder, recurrent, moderate; R26.9 Unspecified abnormalities of gait and mobility; M17.0 Bilateral primary osteoarthritis of knee; M25.361 Other instability, right knee; M25.362 Other instability, left knee; Z99.89 Dependence on other enabling machines and devices; Z91.81 History of falling

== ENCOUNTER 2024-05-25 13:22 | Outpatient (REF) | payer MEDICARE, MEDICAID, SELFPAY ==
--- NOTE | ~2024-05-25 | XR_ITS ---
EXAMINATION: XR SHOULDER, LEFT CLINICAL INFORMATION: M25.512 - Pain in left shoulder COMPARISON: None available. TECHNIQUE: Two views of the left shoulder. FINDINGS: There is an anterior position of the left humerus with respect to the left acetabulum and slightly subcoracoid. No acute cortical disruption. Degenerative changes in the acromioclavicular joint. Osteopenia versus osteoporosis. XR/XR shoulder LT min 2V IMPRESSION: Anterior dislocated left shoulder. Acute versus chronic. Electronically signed by: Paul Adams MD 05/25/2024 03:07 PM EDT
== END 2024-05-25 13:23 | disposition home or self-care (01) ==
LOC: HO.HMGCX 13:22
PROVIDERS: PCP Internal Medicine; Visit Provider Internal Medicine
DX: M25.512 Pain in left shoulder (principal); I89.0 Lymphedema, not elsewhere classified; E66.01 Morbid (severe) obesity due to excess calories; R26.9 Unspecified abnormalities of gait and mobility; M17.0 Bilateral primary osteoarthritis of knee; M25.361 Other instability, right knee; M25.362 Other instability, left knee; F33.1 Major depressive disorder, recurrent, moderate; Z99.89 Dependence on other enabling machines and devices; Z91.81 History of falling
CPT/HCPCS: 73030; 99212

== ENCOUNTER → 2024-05-25 14:11 | Outpatient (BNV) | payer MEDICARE, MEDICAID, SELFPAY | PROVIDERS: PCP Internal Medicine; Visit Provider Radiology Diagnostic Radiology | DX: M25.512 Pain in left shoulder (principal) | CPT/HCPCS: 73030 ==

== ENCOUNTER 2024-06-03 08:39 | Outpatient (REF) | payer OTHER, SELFPAY ==
--- NOTE | ~2024-06-03 | XR_ITS ---
EXAMINATION: XR SHOULDER 2 OR MORE VIEWS LEFT HISTORY: M25.519 - Pain in unspecified shoulder COMPARISON: Comparison is made with the prior examination dated 05/25/2024. FINDINGS: Two views of the left shoulder are submitted. Osseous mineralization is normal. There is persistent anterior dislocation of the humerus. No fracture is seen. There is degenerative change of the AC joint. The soft tissues are unremarkable. XR/XR shoulder LT min 2V IMPRESSION: Persistent anterior dislocation of the humerus. Electronically signed by: Evens Hwang MD 06/06/2024 10:35 AM EDT
== END 2024-06-03 08:40 | disposition home or self-care (01) ==
LOC: HO.HOSX 08:39
PROVIDERS: Visit Provider Physician Assistant
DX: M24.412 Recurrent dislocation, left shoulder (principal)
CPT/HCPCS: 73030

== ENCOUNTER 2024-06-03 09:25 | Outpatient (AMB) | payer OTHER, SELFPAY ==
--- NOTE | 2024-06-03 09:35 | A.OFFVIS_ITS ---
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 Patient reports that her shoulder is not hurting, it could be that she moved it a wrong way. She states that she has tried Tylenol which gave her relief. Allergies cefuroxime Adverse Reaction (Mild, Verified 01/05/24 13:48) Rash Cloth tape Allergy (Unknown, Uncoded 06/02/23 12:36) ?rash HPI HPI SENIOR ACCOUNTING ASSOCIATE-left shoulder pain: Details: The patient is a 73-year-old left-hand dominant female who presents the office today for a left shoulder injury in that she sustained roughly 3 weeks prior to today's appointment. She reports that she was pushing a drawer closed behind her back when she had an increase in pain she was seen by her primary care provider who recommended an x-ray. The x-ray was obtained and she was found to have an anterior shoulder dislocation. It is unclear if this is acute versus chronic. At this time of uncertainty of an acute or chronic dislocation our office recommended presenting to the emergency department for reduction. The patient was adamant that she did not want to attend the emergency room for further evaluation and treatment. [facility] Social History (Updated 06/03/24 @ 09:48 by Patricia Castro) Housing: Apartment Alcohol intake: never Patient Tobacco Use Status: Never used Tobacco e-Cigarette/Vaping Use: Never Used Current occupational status: disabled Current occupation: left hand dominant Cognitive needs: No Hearing needs: No Vision needs: Yes Review of Systems Const All systems reviewed & are unremarkable except as noted in HPI and below Physical Exam Vital Signs: BMI result Body Mass Index 48.2 Const General: cooperative, healthy appearing and no acute distress Resp Effort & Inspection: normal respiratory effort and able to speak in complete sentences Cardio Peripheral pulses: Peripheral pulses 2+ throughout Skin Lesions: no lesions Rashes: no rashes Extrem Other: Left shoulder: Active forward flexion and abduction to 80 degrees. NVI. Assessment & Plan Assessment & Plan (1) Chronic dislocation of left shoulder: Code(s): M24.412 - Recurrent dislocation, left shoulder Category: Medical Plan Dr. Guzman was available to see the patient with me in the office today and a collaborative treatment plan was created. The patient has remarkably no pain with passive range of motion performed in the office. This makes the dislocation likely chronic in nature she is not having any pain. She does not recall any injury or trauma to the left shoulder in the past. We discussed the role of surgical versus non operative intervention. Surgical intervention would include closed reduction today. The patient does not wish to undergo this at this time in the dislocation is likely chronic in nature and would be unstable. She did inquire about physical therapy however is unclear if this would truly benefit her she with this chronic condition. She will follow-up p.r.n., sooner if needed. X-rays of the left shoulder which were obtained while in the office today and were reviewed by me, Carolin Johnson PA-C, revealed a redemonstration of the left anterior shoulder dislocation. Orders: Orders XR shoulder LT min 2V Today M25.519 - Pain in unspecified shoulder Coding Level of Care Code New Pt Level 4 (07155) Diagnoses Chronic dislocation of left shoulder M24.412
[2024-06-03 09:48] VITALS: BMI 48.2
== END 2024-06-03 10:24 | disposition home or self-care (01) ==
LOC: HO.HOS 09:26
PROVIDERS: PCP Internal Medicine; Visit Provider Physician Assistant
DX: M24.412 Recurrent dislocation, left shoulder (principal)
CPT/HCPCS: 99203

== ENCOUNTER → 2024-06-03 09:34 | Outpatient (BNV) | payer OTHER, SELFPAY | PROVIDERS: Visit Provider Radiology Diagnostic Radiology | DX: S42.302A Unspecified fracture of shaft of humerus, left arm, initial encounter for closed fracture (principal) | CPT/HCPCS: 73030 ==

== ENCOUNTER 2024-06-29 09:04 | Outpatient (RCR) | payer MEDICARE, SELFPAY ==
--- NOTE | 2024-06-29 10:23 | MHC.PT.EP ---
[facility] [place] Office [place] Office [place] Office [address] [place] [address] [phone] F: [phone] F: [phone] F: [phone] F: [phone] Physical Therapy Plan of Care Date of Evaluation: 06/29/24 Date of Surgery: n/a Diagnosis: pain in L shoulder Assessment: Patient is a 73 year old female presenting to PT with complaints of pain in her L shoulder. Pt reports onset of pain began April 2024 due to reaching behind her to close a drawer. She presents today with impairments in pain, ROM, strength, ongoing dislocation. Pt's current occupation is none, with baseline physical activities including ADLs. 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 Clinical presentation today is most consistent with signs and sx associated with ongoing L shoulder dislocation. Pt has a poor rehab potential due to ongoing dislocation that has not been reduced. Therefore pt is not a candidate for skilled PT as exercise is not likely to improve her chronic condition (dislocation). There is also a chance that trying PT could make her pain and limitations worse so therefore we will not proceed further. Pt was educated to not push into motions or do activities that increase her pain. Recommend following up with MD if she continues to have issues. Frequency and Duration: The patient will be seen n/a Short Term Goals: n/a Brush Painter Goals: n/a Treatment Plan: Modalities to reduce pain, spasms and effusion. Manual therapy to restore motion and function. Therapeutic exercise to improve strength and flexibility. Neuromuscular re-education for posture and balance. Therapeutic activities to return to functional activities of daily living. Electronically signed by: Echo Alvarenga, PT, DPT, ATC Please sign and return to therapist. Thank you for your referral.
--- NOTE | 2024-06-29 10:24 | MHC.PT.DC ---
[facility] [place] Office [place] Office [place] Office [address] [place] [address] [facility] [phone] F: [phone] F: [phone] F: [phone] F: [phone] Physical Therapy Discharge Report Diagnosis: pain in L shoulder Date of Surgery: n/a Date of Evaluation: 06/29/24 Date of Discharge: 06/29/24 Treatments to Date: 1 Cancellations to Date: 0 No Shows to Date: 0 Discharge Status: Recommend MD Follow-up Discharge Summary: Pt has a poor rehab potential due to ongoing dislocation that has not been reduced. Therefore pt is not a candidate for skilled PT as exercise is not likely to improve her chronic condition (dislocation). There is also a chance that trying PT could make her pain and limitations worse so therefore we will not proceed further. Pt was educated to not push into motions or do activities that increase her pain. Recommend following up with MD if she continues to have issues. Electronically signed by: Echo Alvarenga, PT, DPT, ATC Please sign and return to therapist. Thank you for your referral.
== END 2024-06-29 10:24 | disposition home or self-care (01) ==
LOC: HO.PTCHIC 09:04
PROVIDERS: PCP Internal Medicine; Visit Provider Internal Medicine
DX: M25.512 Pain in left shoulder (principal)
CPT/HCPCS: 97163

== ENCOUNTER 2024-09-01 14:30 | Outpatient (RCR) | payer OTHER, SELFPAY | END 2024-09-01 16:39 | disposition home or self-care (01) | LOC: HO.WCC 14:30 | PROVIDERS: PCP Internal Medicine; Visit Provider Surgery | DX: I87.302 Chronic venous hypertension (idiopathic) without complications of left lower extremity (principal); Q82.0 Hereditary lymphedema; Z09 Encounter for follow-up examination after completed treatment for conditions other than malignant neoplasm; Z87.2 Personal history of diseases of the skin and subcutaneous tissue | CPT/HCPCS: 11042; 97597; 99212; 99213 ==

== ENCOUNTER 2024-11-03 06:51 | Outpatient (AMB) | payer OTHER, SELFPAY ==
--- OUTSIDE RECORDS SUMMARY | 2024-11-03 06:57 | XMS_ITS | Patient Health Record ---
Author Organization [facility] Address [address] [address] Care Team Providers Care Belt Worker Name Role Phone Caitlyn JEAN-BAPTISTE, Talamtandrea Primary Care Provider Heaven Rader Unavailable [phone] Allergies No Known Allergies Reason For Referral No Information Medications Medication SIG (Take, Route, Fr equency, Duration) Notes Start Date End Date Status buPROPion HCl 100 MG 1 tablet Orally Twice a day Active Ibuprofen 400 MG 1 tablet with food o r milk as needed Orally Three times a day Active Fleet Enema - as directed Rectal Active Furosemide 40 MG 1 tablet Orally Once a day Active Tylenol 325 MG 1 tablet as needed O rally every 6 hrs Active Lisinopril 5 MG 2 tablets Orally Once a day Active Melatonin - as directed Active Problems Problem Type SNOMED Code ICD Code Onset Dates Problem Status W/U Status Risk Notes Problem Chronic ulcer of lower extremity (disorder) (63758267) Non-pressure chronic ulcer of unspecified part of left lower leg with unspecified severity (L97.929) Active confirmed Problem Lymphedema (57072753) Lymphedema (I89.0) Active confirmed Encounters Encounter Location Date Provider Diagnosis [facility] [address] [address] 12/31/2023 Heaven Jenkins Plan Of Treatment No Information Insurance Providers Payer Name Payer Address Payer Phone Subscriber Number Group Number Insured Name Patient Relationship to Insured Coverage Start Date Coverage End Date Valeriy Kim [place] ([facility]) [address] [place], [place] [phone] [id number] Madeline Be Self - patient is the insured [employer] (Medicaid) [address] [place], [place] [id number] [phone] [id number] Madeline Be Self - patient is the insured Medical (General) History Medical History History ICD Code Lymphedema I89.0 Non-pressure chronic ulcer o f unspecified part of left lower leg with unspecified severity L97.929
--- NOTE | 2024-11-03 10:24 | MHC.PC.OV ---
Intake Visit Reasons: 6 mon f.up Allergies cefuroxime Adverse Reaction (Mild, Verified 01/05/24 13:48) Rash Cloth tape Allergy (Unknown, Uncoded 06/02/23 12:36) ?rash Medication List - Last Reconciled 11/03/24 by Michelle Alvarez MD ascorbate calcium (vitamin C) 500 mg PO DAILY bupropion HCl XL (Wellbutrin XL) 300 mg PO QAM furosemide (Lasix) 40 mg PO DAILY 90 days ibuprofen 500 mg PO Q6H [Mobility scooter with basket As directed] multivitamin (Daily Multi-Vitamin tablet) 1 tab PO DAILY protein supplement ea PO [Rollator with wide seat As directed] Tobacco use date assessed: 01/05/24 Dental Screening Dental Screen Date: 01/05/24 HPI 6 mon f.up HPI Details Interval History The patient is a 74-year-old female presenting for medication refill and management of shoulder pain. Medication Refill: - Reported being all set with medications for the time being. - Refill required soon as the previous order was for six months. Shoulder Pain:secondary to persistent ant shoulder location - Visited a Physical therapist and consulted a surgeon regarding shoulder pain. - Advised against intervention as it may worsen the condition. - Opted to manage the pain conservatively to avoid the risk of losing arm function. Medications: - Wellbutrin 300 mg - Furosemide - Ibuprofen as needed Problem List - Need for medication refill - Left shoulder pain - Morbid obesity - Use of Wellbutrin, for depression - Furosemide, for lymphedema Patient Instructions - Arrange for a blood test to check electrolytes . - Monitor shoulder pain, continue to avoid aggravating movements. Review of Systems - General: No fever no chills - Neurological: No headaches no dizziness - Ear nose throat: No sore throat no hearing difficulty no ear pain - Cardiovascular: No syncope, no chest pain, no palpitations - Gastrointestinal: No nausea vomiting or diarrhea [facility] Social History Housing: Apartment Alcohol intake: never Patient Tobacco Use Status: Never used Tobacco e-Cigarette/Vaping Use: Never Used Current occupational status: disabled Current occupation: left hand dominant Cognitive needs: No Hearing needs: No Vision needs: Yes Questionnaire Thrive Questionnaire Date Thrive assessed: 08/29/20 Physical exam (Primary Care) Tobacco/Smoking Status: Tobacco use Status Tobacco use date assessed 01/05/24 05/25/24 13:27 Patient Tobacco Use Status Never used Tobacco 06/03/24 09:48 e-Cigarette/Vaping Use Never Used 06/03/24 09:48 Thrive Assessment: Date of Thrive Assessment Date Thrive assessed 08/29/20 05/25/24 13:27 Telehealth Telehealth Telehealth Platform: [facility] Location of provider rendering services: practice address Location of patient: address on file Patient Identification confirmed using: Name, : Yes Telehealth method: video (attempted) Patient verbally consented to treatment: Yes Patient verbally consented to billing insurance company: Yes Patient informed of any privacy concerns related to visit: Yes Minutes spent on Phone/Video with Pt.: 13 Coding Level of Care Code Est Pt Level 3 (74765) Complex EM visit Add On G2211 Diagnoses Moderate episode of recurrent major depressive disorder F33.1 Active/Remission status: currently active Major depression episode severity: moderate Acute pain of left shoulder M25.512 Chronicity: acute Lymphedema I89.0 Morbid obesity due to excess calories E66.01 Gait difficulty R26.9 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; 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 Walker as ambulation aid Z99.89 Risk for falls Z91.81 Assessment & Plan Assessment & Plan (1) Major depression, recurrent: Code(s): F33.9 - Major depressive disorder, recurrent, unspecified Category: Medical Qualifiers: Active/Remission status: currently active Major depression episode severity: moderate Qualified Code(s): F33.1 - Major depressive disorder, recurrent, moderate (2) Shoulder pain, left: Code(s): M25.512 - Pain in left shoulder Category: Medical Qualifiers: Chronicity: acute Qualified Code(s): M25.512 - Pain in left shoulder (3) Lymphedema: Code(s): I89.0 - Lymphedema, not elsewhere classified Category: Medical (4) Morbid obesity due to excess calories: Code(s): E66.01 - Morbid (severe) obesity due to excess calories Category: Medical (5) Gait difficulty: Code(s): R26.9 - Unspecified abnormalities of gait and mobility Category: Medical (6) Instability of both knee joints: Code(s): M25.361 - Other instability, right knee; M25.362 - Other instability, left knee Category: Medical (7) Walker as ambulation aid: Code(s): Z99.89 - Dependence on other enabling machines and devices Category: Medical (8) Risk for falls: Code(s): Z91.81 - History of falling Category: Medical Plan Interval History The patient is a 74-year-old female presenting for medication refill and management of shoulder pain. Medication Refill: - Reported being all set with medications for the time being. - Refill required soon as the previous order was for six months. Shoulder Pain:secondary to persistent ant shoulder location - Visited a Physical therapist and consulted a surgeon regarding shoulder pain. - Advised against intervention as it may worsen the condition. - Opted to manage the pain conservatively to avoid the risk of losing arm function. Medications: - Wellbutrin 300 mg - Furosemide - Ibuprofen as needed Problem List - Need for medication refill - Left shoulder pain - Morbid obesity - Use of Wellbutrin, for depression - Furosemide, for lymphedema Patient Instructions - Arrange for a blood test to check electrolytes . - Monitor shoulder pain, continue to avoid aggravating movements. Orders: Orders Complete Blood Count Auto Diff Today D63.8 - Anemia in other chronic diseases classified elsewhere, E66.01 - Morbid (severe) obesity due to excess calories, F33.1 - Major depressive disorder, recurrent, moderate, I89.0 - Lymphedema, not elsewhere classified, R26.9 - Unspecified abnormalities of gait and mobility, S43.005A - Unspecified dislocation of left shoulder joint, initial encounter, Z99.89 - Dependence on other enabling machines and devices LDL Cholesterol Direct Today D63.8 - Anemia in other chronic diseases classified elsewhere, E66.01 - Morbid (severe) obesity due to excess calories, F33.1 - Major depressive disorder, recurrent, moderate, I89.0 - Lymphedema, not elsewhere classified, R26.9 - Unspecified abnormalities of gait and mobility, S43.005A - Unspecified dislocation of left shoulder joint, initial encounter, Z99.89 - Dependence on other enabling machines and devices Comprehensive Met. Panel Today D63.8 - Anemia in other chronic diseases classified elsewhere, E66.01 - Morbid (severe) obesity due to excess calories, F33.1 - Major depressive disorder, recurrent, moderate, I89.0 - Lymphedema, not elsewhere classified, R26.9 - Unspecified abnormalities of gait and mobility, S43.005A - Unspecified dislocation of left shoulder joint, initial encounter, Z99.89 - Dependence on other enabling machines and devices Medications: Refilled bupropion HCl XL (Wellbutrin XL) 300 mg PO QAM 90 tabs 1RF furosemide (Lasix) 40 mg PO DAILY 90 tabs 0RF 90 days
== END 2024-11-03 13:08 | disposition home or self-care (01) ==
LOC: HO.HMCC 06:52
PROVIDERS: PCP Internal Medicine; Visit Provider Internal Medicine
DX: M25.512 Pain in left shoulder (principal); F33.1 Major depressive disorder, recurrent, moderate; E66.01 Morbid (severe) obesity due to excess calories; I89.0 Lymphedema, not elsewhere classified; R26.9 Unspecified abnormalities of gait and mobility; M25.361 Other instability, right knee; M25.362 Other instability, left knee; Z99.89 Dependence on other enabling machines and devices; Z91.81 History of falling